=== PATIENT | male | born 1960 | race Caucasian/White ===

== ENCOUNTER 2020-01-23 09:12 | Inpatient (IN) | payer OTHER ==
[~2020-01-23] VITALS: Ht 188 cm; Wt 74.8 kg
[2020-01-23 09:28] VITALS: BP 161/89
[2020-01-23 09:48] LABS: HEMOGLOBIN 16.7 gm/dL (14.0-18.0); MCH 31.4 pg (26.0-34.0); MCHC 34.7 g/dL (28.0-37.0); MCV 90.4 fL (80.0-100.0); MPV 8.3 fl. (7.2-11.1); NUCLEATED RBCS 0 /100WBC; PLATELET COUNT* 156 thou/uL (150-400); RBC 5.31 mil/uL (4.50-6.00); RDW-CV 13.3 % (10.5-14.5)
[2020-01-23 09:52] LABS: CALCIUM 8.8 mg/dL (8.5-10.1); CREATININE 1.7 mg/dL (0.6-1.3); POTASSIUM 3.9 mmol/L (3.5-5.1)
[2020-01-23 10:03] LABS: TOTAL BILIRUBIN 1.4 mg/dL (<0.1-1.0); TOTAL PROTEIN 7.1 g/dL (6.4-8.2)
[2020-01-23 10:32] LABS: INFLUENZA A ANTIGEN Negative (Negative); INFLUENZA B ANTIGEN Negative (Negative)
[2020-01-23 10:33] LABS: ABSOLUTE LYMPHOCYTES 1.1 thou/uL (0.8-5.3); ABSOLUTE MONOCYTES 0.7 thou/uL (0.0-1.2); ABSOLUTE NEUTROPHILS 20.2 thou/uL (1.6-8.1); PLATELET ESTIMATE ADEQUATE
[2020-01-23 12:38] LABS: APTT 28.8 Seconds (25.0-31.3); INR 1.1; PROTIME 11.9 Seconds (9.20-11.50)
[2020-01-23 12:49] VITALS: BP 117/81
[2020-01-23 13:30] VITALS: BP 120/76
--- NOTE | 2020-01-23 17:07 | EKG ---
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 01/23/20 1707 0953 [id number] Vinh Chawla MD, [facility] /EPI
--- NOTE | 2020-01-23 19:11 | NUR ---
PT A&OX4 VSS. PT UP AD ELVIN. PT REMAINS SINUS ON MONITOR. IVs TO LFA AND LAC PATENT, DRESSINGS, C/D/I. PT REMAINS CONTINENT OF B/B. PT TOLERATES PO INTAKE NO COMPLAINTS OF N/V. RAPID COVID WAS NEG, BUT WAITING FOR RESULTS OF PCR. PT RESTS IN ROOM WITH CALL LIGHT IN REACH, WILL CONTINUE TO MONITOR
[2020-01-24] VITALS: BP 112/59
--- NOTE | 2020-01-24 05:29 | NUR ---
PT SLEPT MOST OF SHIFT. ASSESSMENT DOCUMENTED. MEDS GIVEN PER E-MAR. IV PATENT, FLUIDS INFUSING. PT REPORTS HEADACHE RELIEVED BY TYLENOL. ISOLATION MAINTAINED.
[2020-01-24 05:42] VITALS: BP 128/82
[2020-01-24 06:42] LABS: URINE BILIRUBIN NEGATIVE (Negative); URINE BLOOD 3+ (Negative); URINE CLARITY CLEAR; URINE COLOR DARK YELLOW; URINE GLUCOSE-RANDOM NEGATIVE (Negative); URINE KETONES TRACE (Negative); URINE LEUKOCYTES-REFLEX 1+ (Negative); URINE NITRITE-REFLEX NEGATIVE (Negative); URINE PROTEIN TRACE (Negative)
[2020-01-24 06:55] LABS: CASTS None Seen /LPF (None Seen); CRYSTALS None Seen /LPF (None Seen); MUCUS None Seen strn/LPF (None Seen); SQUAMOUS 0-3 Few /LPF (0-3); URINE RBC 3-10 Few /HPF (0-2); URINE WBC-REFLEX 6-15 Few /HPF (0-5)
[2020-01-24 10:00] VITALS: BP 134/84
[2020-01-24 10:20] LABS: HEMATOCRIT 43.6 % (42.0-52.0); HEMOGLOBIN 14.9 gm/dL (14.0-18.0); MCH 31.3 pg (26.0-34.0); MCHC 34.1 g/dL (28.0-37.0); MCV 91.7 fL (80.0-100.0); MPV 7.9 fl. (7.2-11.1); RBC 4.76 mil/uL (4.50-6.00); RDW-CV 13.7 % (10.5-14.5); WBC 13.1 thou/uL (4.0-11.0)
[2020-01-24 10:28] LABS: CALCIUM 8.7 mg/dL (8.5-10.1); CREATININE 1.1 mg/dL (0.6-1.3); MAGNESIUM 2.2 mg/dL (1.8-2.4); POTASSIUM 4.1 mmol/L (3.5-5.1)
--- NOTE | 2020-01-24 11:36 | NUR ---
PT.NEEDS TO TRANSFER TO A HOSPITAL THAT HAS UROLOGY SERVICE. SPOKE WITH HIM. 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 HE SAID HIS TRUCK IS PARKED AT [employer] IN [place]. HE IS FROM [place]. HE DOES NOT HAVE INSURANCE. HIS SON LIVES THERE. HE SAID HIS SON IS AWARE HE IS IN THE HOSPITAL.
--- NOTE | 2020-01-24 13:30 | NUR ---
[facility] ACC[facility] CALLED. PT CAN GO TO [facility]S [facility] 605. REPORT TO [facility]/[phone] OR [phone]. AMBULANCE FORM FAXED. RN REQUESTS 1600 PICKUP. ARRNAGED WITH [facility] THROUGH FIRE. EMTALA FORM PARTIALLY COMPLETED AND AMBULANCE FORM FAXED TO [facility]. COPIES TO GO WITH PT. DONALD DUTTA INFORMED. PT.INFORMED.
[2020-01-24 13:58] VITALS: BP 120/101
--- NOTE | 2020-01-24 16:21 | NUR ---
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 POSITIVE SEPSIS, PNEUMONIA, HE WAS CONFIRMED COVID NEGATIVE BUT A FINDING OF LT URETER STONE STRICTURE. PT VSS,AFEBRILE AND REPORTED PAIN UNDER CONTROL. REFERRAL WAS MADE TO UROLOGY TRANSFER AND [facility] ACCEPTED PT. REPORT WAS CALLED TO [facility] [id number] AND [facility] CAME FOR TRANSFER, PT HAD 20G IN LT FORARM SL.
== END 2020-01-24 16:20 | disposition short-term general hospital (02) | DRG 871 ==
LOC: M.ERS 09:12 → M.TBA-ER 11:33 → M.ORTHSURG 13:02
PROVIDERS: Emergency Medicine Emergency Medical Services; ADMIT Internal Medicine; ATTEND Internal Medicine
DX: A41.89 Other specified sepsis (principal); J18.9 Pneumonia, unspecified organism; N17.0 Acute kidney failure with tubular necrosis; E87.2 Acidosis; E87.1 Hypo-osmolality and hyponatremia; N13.6 Pyonephrosis; F17.200 Nicotine dependence, unspecified, uncomplicated; Z20.828 Contact with and (suspected) exposure to other viral communicable diseases